=== PATIENT | female | born 1975 | race Caucasian/White ===

== ENCOUNTER 2019-08-15 09:42 | Outpatient (CLI) | payer BC, SELFPAY ==
--- NOTE | ~2019-08-15 | MM_ITS ---
EXAMINATION: MM screening [facility] w kaitlin HISTORY: Screening mammogram, family history of breast cancer in her sister. TECHNIQUE: Craniocaudal and mediolateral oblique 3-D tomosynthesis images were obtained and synthetic 2-D images were generated. CAD analysis was submitted and interpreted. COMPARISON: None, baseline BREAST PARENCHYMAL COMPOSITION: There are scattered areas of fibroglandular density. FINDINGS: RIGHT BREAST: There is no evidence of suspicious mass, calcification, or architectural distortion to suggest malignancy. LEFT BREAST: There is a 4 mm mass in the middle third of the inner breast. There is questionable cent ral fat in the lesion. IMPRESSION: 1. Left breast mass which could reflect an intramammary lymph node. 2. Additional mammographic views and possible breast ultrasound are recommended to evaluate for malig grazyna and establish a baseline given that this is the first mammographic examination. BI-RADS Category 0: Incomplete: Needs additional imaging evaluation. Reviewed, dictated and finalized at location A. IMPRESSION: 1. Left breast mass which could reflect an intramammary lymph node. 2. Additional mammographic views and possible breast ultrasound are recommended to evaluate for malignancy and establish a baseline given that this is the fir st mammographic examination. BI-RADS Category 0: Incomplete: Needs additional imaging evaluation.
== END 2019-08-15 09:43 | disposition home or self-care (01) ==
LOC: ANHIMG 09:45
PROVIDERS: PCP Family Medicine Sports Medicine; Visit Provider Surgery Plastic and Reconstructive Surgery
DX: Z12.31 Encounter for screening mammogram for malignant neoplasm of breast (principal); R92.8 Other abnormal and inconclusive findings on diagnostic imaging of breast
CPT/HCPCS: 77063; 77067

== ENCOUNTER 2019-09-06 08:35 | Outpatient (CLI) | payer BC, SELFPAY ==
[2019-09-06 09:02] LABS: Hematocrit 38.5 % (37.0-47.0)
== END 2019-09-06 08:36 | disposition home or self-care (01) ==
LOC: ANHSURGERY 08:37
PROVIDERS: Anesthesiology; PCP Family Medicine Sports Medicine; Visit Provider Surgery Plastic and Reconstructive Surgery
DX: Z01.818 Encounter for other preprocedural examination (principal); N62 Hypertrophy of breast
CPT/HCPCS: 36415; 85014; 85018

== ENCOUNTER 2019-09-11 00:20 | Outpatient (CLI) | payer BC, SELFPAY ==
[2019-09-11 19:01] LABS: SARS-CoV-2 RNA PCR Negative
== END 2019-09-11 00:21 | disposition home or self-care (01) ==
LOC: ANHCOVIDDT 00:20
PROVIDERS: PCP Family Medicine Sports Medicine; Visit Provider Surgery Plastic and Reconstructive Surgery
DX: Z01.818 Encounter for other preprocedural examination (principal); Z11.59 Encounter for screening for other viral diseases
CPT/HCPCS: 87635; C9803; U0003

== ENCOUNTER 2019-09-13 03:24 | Day surgery (SDC) | payer BC, OTHER, SELFPAY ==
[2019-09-02 11:58] VITALS: BMI 37.3
--- NOTE | 2019-09-12 12:21 | WPDANESEPPF ---
Anes - Initial Pre Proc Eval Procedure: Operation Date: 09/13/19 07:30 Proposed Procedures p Bilateral Breast Reduction - Damien Oreilly MD s Upper Abdomen Liposuction - Damien Oreilly MD Date/Time: 09/12/19 12:21 Surgeon: Damien Oreilly MD Pre Op Diagnosis: macromastia, localized adiposity Patient Data Age: 44 Gender: F Height: 5 ft 3 in Weight: 95.71 kg Allergies Allergy/AdvReac Type Severity Reaction Status Date / Time adhesive tape Allergy RED/ITCHING Verified 09/02/19 11:59 Penicillins Allergy UNKNOWN Verified 09/02/19 11:59 REACTION- OCCURED CHILD Home Medications Medication Instructions Recorded Confirmed Type fluoxetine 20 mg capsule 20 mg PO DAILY cap 06/18/19 09/02/19 History omeprazole 20 mg PO BID 09/02/19 09/02/19 History Patient hx anesthesia problems: post op nausea/vomiting Family hx anesthesia problems: none PMFSH Past Medical History Medical History (Updated 09/12/19 @ 12:21 by Easton Parra MD) Anxiety Migraine Surgical History Surgical History (Updated 06/18/19 @ 11:10 by Sakshi Fung RN) History of appendectomy 1986 History of foot surgery 2009 Social History Social History Smoking status: Never smoker Spiritual care concerns: No Anes - Eval Final PreProcedure Day of Procedure 09/12/19 12:21 Patient weight: overweight Heart: regular rate and rhythm Lungs: clear to auscultation Airway: Mallampati scale class II Neurological: alert and oriented Last oral intake: >/= 8 hours ASA classification: II Emergent: no Anesthetic plan: proceed Anesthesia type and monitoring: general ETT and standard monitoring Informed Consent: The patient's anesthetic plan and its attendant risks and benefits were discussed with the patient/family/POA. Questions were solicited and answers provided to the satisfaction of the patient/family/POA.
[2019-09-13] VITALS (13 sets, daily range): BP systolic 110–130; BP diastolic 65–89; PULSE 59–93; RESP 12–18; TEMP 36.3; O2SAT 92–100; BMI 36.8
[2019-09-13 06:49] LABS: Urine Cotinine NEGATIVE
--- NOTE | 2019-09-13 06:50 | WPDHPUPDATE1 ---
History and Physical Update Update Date/Time: 09/13/19 06:50 History and Physical has been reviewed, including an updated exam of the patient. There are NO changes in the patient's condition. Risks, benefits, and alternatives have been discussed and questions answered. Patient agrees to proceed with procedure.
--- NOTE | 2019-09-13 07:12 | PM.PROC ---
Procedure Note - Detailed Date of procedure: 09/13/19 Pre-op diagnosis: macromastia, localized adiposity Post-op diagnosis: same Procedure performed: 1. Bilateral reduction mammaplasty. 2. Suction lipectomy of upper abdomen. Description of procedure: She is here today for bilateral breast reduction and upper abdominal suction lipectomy. Previously and again today the risks, benefits, alternatives were discussed in extensive detail. I wanted her to be very realistic about the risks involved as well as expectations. We discussed aftercare and what to monitor for. She understands we can never guarantee final breast size and there will always be asymmetry. I was very upfront and honest about the risks of sensation change and even nipple loss (). She understands the limitations of the lateral breast and she may have excess fullness after the procedure which could be treated at her expense. Made sure answered all of her questions to her satisfaction today and consent was obtained. She was marked in the preoperative holding area with their verification. The patient was taken to the operating room placed supine on the operating table. Anesthesia was provided by anesthesiology. She was prepped and draped in a standard sterile fashion. A surgical time-out was taken. Stab incisions were made and I tumessed with a tumescent solution. Using a S[employer]E. techinque I completed suction lipectomy of the upper abdomen uneventfully using a rolling pinch test for and endpoint. Single suture placed for closure. For the the breast stab incisions were made and I tumessed with a tumescent solution. I marked out the nipple-areolar complex at 42 mm. I then de-epithelialized the pedicle. The pedicle was well left well more than 2 cm in thickness. I then removed the inferior portion of the breast as well as the central keel to get shape based on preoperative planning. At this point copiously irrigated with saline solution and verified a strict hemostasis. I reapproximated the pillars using a 2-0 PDS as well as along the IMF. I tailor tacked the breast into place with sotero. She was placed in a sitting position. I verified the nipple-areolar complex position based on preoperative markings, intraoperative measurements, and observation which were in full agreement. This nipple-areolar complex was marked at 42 mm in size. I then placed supine and de-epithelialized this. Nipple-areolar complex was inset with 3-0 Monocryl. I closed the vertical incision with 3-0 Monocryl in the IMF with 3-0 stratafix. Then everything was closed using a running subcuticular 4-0 Monocryl followed by Steri-Strips. At this point checked the areola as there was a slight (mild) asymmetry in color. Bilateral had 2-3 second capillary refill / symmetric cap refill. A dressing was placed followed by surgical bra. Patient was awoke and taken to PACU without difficulty. All instrument sponge counts were correct at the end of the case. Surgeon: Damien Oreilly MD Estimated blood loss (mL): 20 Drains: No Packing: No Pathology: yes (Bilateral breast tissue) Complications: No immediate complications Condition: stable Disposition: PACU Findings: Bilateral inverted T superior medial pedicle reduction mammaplasty. Removed tissue R: 853 grams, L: 853 grams. Lipoaspirate of upper abdomen 1050cc.
[2019-09-13] MEDS: LACTATED RINGERS 1,000 ML 30 ML IV CONT ×4 (07:15→12:57)
[2019-09-13] MEDS: SCOPOLAMINE 1.5 MG PATCH TRANSDERM (07:20)
[2019-09-13] MEDS: CLINDAMYCIN 900 MG/NS 50 ML 900 MG/50 ML PIGGYBACK 50 MG IVPB (07:25)
--- NOTE | 2019-09-13 07:36 | SUR.PREOP ---
0700; RN IN ROOM WITH DR PERRY WHILE HE MARKED PT
[2019-09-13] MEDS: ONDANSETRON INJ 4 MG/2 ML VIAL IV PUSH ×2 (11:27→12:48)
--- NOTE | 2019-09-13 13:07 | SUR.PHASEII ---
DR. LOPEZ CALLED RE: PT'S PERSISTENT NAUSEA; TO GIVE BENADRYL
[2019-09-13] MEDS: diphenhydrAMINE HCl INJ 50 MG/ML VIAL 12.5 MG IV PUSH (13:19)
== END 2019-09-13 14:43 | disposition home or self-care (01) ==
PROVIDERS: PCP Family Medicine Sports Medicine; Visit Provider Surgery Plastic and Reconstructive Surgery
PROC: 0HBV0ZZ Excision of Bilateral Breast, Open Approach (ICD-10-PCS; CPT 19318; principal; 2019-09-13 07:30)
PROC: (CPT 15877; 2019-09-13 07:30)
DX: N62 Hypertrophy of breast (principal); E65 Localized adiposity; N60.32 Fibrosclerosis of left breast; N60.31 Fibrosclerosis of right breast; N60.42 Mammary duct ectasia of left breast; N60.41 Mammary duct ectasia of right breast; F41.9 Anxiety disorder, unspecified
CPT/HCPCS: 19318; 15877; 36415; 80307; 88305; A9270; J0171; J1100; J1170; J1200; J2250; J2405; J2704; J2710; J3010; J7120; L8000